=== PATIENT | female | born 1960 | race Asian ===

== ENCOUNTER 2020-09-13 11:42 | Emergency (ER) | payer MEDICAID, OTHER, SELFPAY ==
[2020-09-13 12:00] VITALS: BP 186/78; PULSE 81; RESP 18; TEMP 36.5; O2SAT 99; BMI 29.9
[2020-09-13 12:06] VITALS: BP 167/88
[2020-09-13] MEDS: Tetracaine HCl/PF 0.5% Oph Sol 4 ML DROPS 1 DROP EYE-RIGHT (12:15)
[2020-09-13] MEDS: Fluorescein Sodium STRIP 1 STRIP EYE-RIGHT (12:15)
--- NOTE | 2020-09-13 12:15 | PC.NURSE ---
PT MEDICATED BY MLCecile (MAY).
--- NOTE | 2020-09-13 12:21 | PC.NURSE ---
VISUAL ACUITY DONE PT - L EYE 20/70. PT STATES THAT SHE WAS UNABLE TO SEE OUT OF THE R EYE PRIOR TO EYE DISC TODAY. MLP (May.
--- NOTE | 2020-09-13 12:58 | ED_ITS ---
HPI - Eye Problem General Chief complaint: Eye Problems Stated complaint: eye pain Time Seen by Provider: 09/13/20 11:59 Source: patient Mode of arrival: ambulatory Limitations: no limitations History of Present Illness HPI Narrative: Patient presents to ED for right eye pain, redness, itchiness, and green discharge since yesterday. Patient denies any recent trauma to the eye. patient states loss of right eye vision is chronic for the past 7 months due to retinal detachment that was not repaired at [facility] because it was too late as per patient. MD chief complaint: eye pain and eye redness Related Data Previous Rx's Medication Instructions Recorded neomycin-polymyxin B-dexameth 0.5 inch OPHTHALMIC (EYE) QID 5 09/13/20 [Maxitrol] Days #3.5 g Allergies Allergy/AdvReac Type Severity Reaction Status Date / Time No Known Allergies Allergy Unverified 06/28/20 19:48 [No Known Allergies*] Review of Systems Review of Systems: Yes all other systems are reviewed and are negative Constitutional: Constitutional: Reports as per HPI and Reports no additional constitutional complaints Eyes: Eyes: Reports as per HPI and Reports no additional eye complaints Comments: Right eye pain, conjunctival, scleral redness, green discharge, ENT: Reports system reviewed and no additional complaints, except as documented and Reports as per HPI Cardiovascular: Cardiovascular: Reports as per HPI and Reports no additional cardiovascular complaints Respiratory: Respiratory: Reports as per HPI and Reports no additional respiratory complaints Gastrointestinal: Gastrointestinal: Reports as per HPI and Reports no additional gastrointestinal complaints Musculoskeletal: Musculoskeletal: Reports no additional musculoskeletal complaints and Reports as per HPI Neurologic: Reports system reviewed and no additional complaints, except as documented and Reports as per HPI Psychiatric: Psychiatric: Reports no additional psychiatric complaints and Reports as per HPI [facility] Past Medical History Medical History (Updated 09/13/20 @ 13:06 by MEI Ram) High blood pressure Social History Social History Advance Directives: No Advance Directives Information Provided: Yes Physical Exam Vital Signs: Vital Signs: Last Vital Signs Temp 97.7 F 09/13/20 12:00 Pulse 81 09/13/20 12:00 Resp 18 09/13/20 12:00 BP 167/88 H 09/13/20 12:06 Pulse Ox 99 09/13/20 12:00 Body Mass Index 29.9 Const: General: cooperative, healthy appearing, comfortable, no acute distress and well developed HENMT: Head: Yes normal to inspection, Yes No palpable skull fracture present, No atraumatic, No Acrocyanosis present, No Farias's sign, No contusion, No cranial bruits, No hematoma, No laceration, No occipital foramen tenderness, No palpable skull fracture, No raccoon eyes, No scalp tenderness, No Temporal artery tenderness present and No periorbital ecchymosis Eyes: Other: right eye: Chronic vision loss. Positive for conjunctival / scleral erythema. Negative for photophobia. Tonometry pressure is 12. negative corneal abrasion with fluorescein dye under wood's lamp. negative phot ophobia Left eye: visual acuity 20/25. Tonometry pressures 4. Negative photophobia. Negative for any conjunctival erythema or scleral erythema. Neck: Neck: Yes normal visual inspection, Yes full ROM, Yes no lymphadenopathy and Yes no meningeal signs Chest: Chest palpation & inspection: normal inspection of the chest and normal palpation of entire chest wall Resp: Effort & Inspection: normal respiratory effort and able to speak in complete sentences Auscultation: clear to auscultation bilaterally Cardio: Jugular venous distension: no JVD Heart sounds: S1 normal heart sound present and S2 normal heart sound present GI: Inspection: Yes normal to inspection and No abdominal wall ecchymosis Palpation (GI): Soft to palpation, not firm, nontender, no guarding and not rigid : General: No CVA tenderness and Yes no CVA tenderness Back/Spine/Pelvis: Back: no CVA tenderness, No CVA tenderness and No back tenderness Skin: General skin exam: no rashes or lesions noted Neuro: General: gait normal, no meningeal signs and CN's II-XI intact bilaterally Cranial nerves: Yes CN's II-XII intact bilaterally Extrem: General: Yes normal to inspection and Yes full ROM Psych: Appearance: grossly normal, well kempt and not disheveled Course Course Course Narrative: History physical exam does not indicate glaucoma, corneal abrasion, iritis, or scleritis. Reevaluation(s) Reevaluation #1: most likely diagnosis is bacterial conjunctivitis, but due to patient states more pain than usual and history of retinal detachment Dr. Estrella of ophthomalogy was consulted and he states patient can come to his office today for further evaluation. In the meantime he recommends prescribing Maxitrol. history physical exam does not indicate scleritis due to patient not having photophobia. Patient was informed to go to Dr. Estrella office immediatley after discharge. Time: 13:04 MDM - Eye Problem MDM Narrative Medical decision making narrative: Bacterial conjuctivitis Discharge Plan Discharge Clinical Impression: Bacterial conjunctivitis Patient Disposition: Home, Self-Care Instructions: Conjunctivitis (ED) Additional Instructions: after being discharged please immediately go to Dr. Estrella office. Return to the ED immediately for worsening eye pain, headache, dizziness, swelling of eyelid, fever, chills, or any other concerning symptoms. Prescriptions: New neomycin-polymyxin B-dexameth [Maxitrol] 3.5 mg/g-10,000 unit/g-0.1 % ointment 0.5 inch ophthalmic (eye) QID 5 Days Qty: 3.5 RF: 0 Referrals: Seymour Estrella [Physician] - 2 days ( Right eye pain with redness. Diagnosed as bacterial conjunctivitis. needs further evaluation due to history of right eye retinal detachment. Chronic right eye vision loss. Please go to the clinic after discharge as soon as possible today.) Interventions: ED Discharge Assessment Last Done: 09/13/20 13:26 Discharge Date/Time: 09/13/20 13:27 Print Language: Serbian
== END 2020-09-13 13:27 | disposition home or self-care (01) ==
PROVIDERS: Emergency Provider Emergency Medicine
DX: H10.89 Other conjunctivitis (principal); I10 Essential (primary) hypertension; H54.61 Unqualified visual loss, right eye, normal vision left eye
CPT/HCPCS: 99283

== ENCOUNTER 2021-03-08 15:08 | Outpatient (REF) | payer MEDICAID, OTHER, SELFPAY | END 2021-03-08 15:09 | disposition home or self-care (01) | LOC: HO.RESP 15:08 | PROVIDERS: PCP Internal Medicine; Visit Provider Internal Medicine | DX: Z13.89 Encounter for screening for other disorder (principal) ==

== ENCOUNTER 2023-02-10 14:41 | Outpatient (REF) | payer MEDICAID, OTHER, SELFPAY ==
--- NOTE | ~2023-02-10 | MM_ITS ---
EXAMINATION: MM SCREENING DIGITAL BREAST TOMOSYNTHESIS, BILATERAL CLINICAL INFORMATION: Screening. Asymptomatic. Age 62. No prior breast imaging. No known family history breast cancer. The lifetime risk of breast cancer based on the Tyrer-Cuzick Model is 4%. COMPARISON: None (current study represents initial baseline exam). TECHNIQUE: Digital breast tomosynthesis is performed in both the craniocaudal and mediolateral oblique views along with computer-aided detection (CAD). Synthesized 2D images are generated from the tomosynthesis. FINDINGS: There are scattered areas of fibroglandular density (ACR BI-RADS breast composition Category b). There are no significant masses, abnormal calcifications, or other abnormalities. The axilla are unremarkable. There are scattered bilateral predominantly vascular calcifications. Skin contours are smooth. MM/MM tomosynthesis screening BI IMPRESSION: No mammographic evidence of malignancy. ASSESSMENT: BI-RADS 2: Benign RECOMMENDATION: Routine annual mammography screening. This patient's information was entered into a reminder system with a target due date for their next mammogram.
== END 2023-02-10 14:42 | disposition home or self-care (01) ==
LOC: HO.MAMMO 14:41
PROVIDERS: PCP Internal Medicine; Visit Provider Internal Medicine
DX: Z12.31 Encounter for screening mammogram for malignant neoplasm of breast (principal)
CPT/HCPCS: 77063; 77067

== ENCOUNTER → 2023-02-17 14:57 | Outpatient (REF) | payer MEDICAID, OTHER, SELFPAY ==
--- NOTE | 2023-02-17 15:07 | CA_ITS ---
Transthoracic Echocardiogram Patient (Last, First, Middle): Romelia Justin D Gender: Female Date of : 1960 Age: 62 Procedure Date: 02/17/2023 Procedure Type: Transthoracic Echocardiogram Location: OP Height: 160.02 cm Weight: 71.67 kg BSA: 1.75 m2 Heart Rate: bpm BP: 130 / 86 mmHg Salesperson Burial Plots: LUIS CARLOS Referring MD: Zurdo Gutierrez MD Symptoms: SOB R06.02 Study Quality: Adequate ECG Rhythm: Sinus Conclusions: - The left ventricular systolic function is normal. The calculated ejection fraction is 65% by biplane method. - No obvious valvular pathology seen on this study. Findings Left Ventricle Normal left ventricular cavity size. The left ventricular systolic function is normal. The calculated ejection fraction is 65% by biplane method. There is no evidence of regional wall motion abnormalities. Diastolic function is normal for age. There is mild septal asymmetric hypertrophy. LV peak GLS 22.3%. Right Ventricle Normal right ventricular cavity size and systolic function. Atria Both atria are normal in size. Aortic Valve There is a normal trileaflet aortic valve. There is no aortic valve stenosis. There is no aortic valve regurgitation. Mitral Valve The mitral valve appears normal. There is trace mitral valve regurgitation. There is no mitral valve stenosis. Pulmonic Valve The pulmonic valve is likely normal. Tricuspid Valve Normal tricuspid valve structure. There is trace tricuspid valve regurgitation. There is no evidence of pulmonary hypertension. Great Vessels The asc aorta is normal in size. Venous The inferior vena cava is normal in size and collapses greater than 50% with inspiration. Pericardium/Pleural There is no evidence of pericardial effusion. Prior Study Comparison No prior study available for comparison. Recommendations, Care & Conclusions No obvious valvular pathology seen on this study. Measurements 2D Linear Measurements IVSd: 1.03 0.6-0.9/0.6-1.0 cm LVIDd: 4.32 3.9-5.3/4.2-5.9 cm LVIDd Index: 2.47 2.4-3.2/2.2-3.1 cm/m2 LVIDs: 2.61 2.0-3.6 cm LVPWd: 0.96 0.7-1.1 cm LA Diam: 3.80 2.7-3.8/3.0-4.0 cm LAIDs Index: 2.17 1.5-2.3 cm/m2 LV Mass: 177.94 67-162/88-224 g LV Mass Index: 101.68 43-95/49-115 g/m2 LVOT Diam: 2.00 3.0+(-)1.3 cm 2D Systolic Function EF 4C: 61.80 >55% EF 2C: 65.50 >55% EF BiP: 64.60 >55% Mitral Valve MV Pk E: 0.80 MV PK A: 0.71 MV Decel Time: 215.00 E/A: 1.10 E'Lateral: 11.30 E'Medial: 10.10 E/E' Med: 7.90 E/E' Lat: 7.10 PHT: 63.00 MVA PHT: 3.49 Decel Anson: 3.73 Aortic Valve AoV Pk Hardik: 1.63 AoV Mn Hardik: 1.14 AoV VTI: 0.38 AoV Pk Grad: 11.00 Aov Mn Grad: 6.00 AYSE Cont.VTI: 1.88 LVOT LVOT Pk Hardik: 0.89 LVOT Mn Hardik: 0.61 LVOT VTI: 0.23 LVOT Pk Grad: 3.00 LVOT Mn Grad: 2.00 LVOT Diam: 2.00 LVOT Area: 3.14 Diastolic Function MV Pk E: 0.80 MV Pk A: 0.71 E/A: 1.10 E'Medial: 10.10 E/E' Med: 7.90 E' Laterial: 11.30 E/E' Lat: 7.10 Right Ventricle TAPSE (mm): 18.70 TVS' Hardik: 10.40 Tricuspid Valve TR Pk Hardik: 1.98 TR Pk Grad: 16.00 RA Press: 3.00 RVSP: 19.00 Great Vessels Aorta Sinus of Valsalva: 3.43 2.0-3.[address] [place]: 2.73 1.7-3.4 cm Ao Asc: 3.20 2.1-3.4 cm Updated in Other Vendor System with Status of Final Gregorio Pérez MD electronically signed on 02/19/2023 10:43:59 AM with status of Final
== END ==
LOC: HO.CARD 14:57
PROVIDERS: PCP Internal Medicine; Visit Provider Internal Medicine
DX: R06.02 Shortness of breath (principal)
CPT/HCPCS: 93306; 93356

== ENCOUNTER 2023-06-22 12:58 | Outpatient (REF) | payer MEDICAID, OTHER, SELFPAY ==
[2023-06-24 21:49] LABS: TS Negative Control Passed; TS Panel A 0; TS Panel B 0; TS Positive Control Passed; TSpotTB Negative (Negative)
== END 2023-06-22 12:59 | disposition home or self-care (01) ==
LOC: HO.CHCLDS 12:58
PROVIDERS: Visit Provider Student in an Organized Health Care Education/Training Program
DX: A15.0 Tuberculosis of lung (principal)
CPT/HCPCS: 36415; 86481

== ENCOUNTER 2024-05-18 09:11 | Outpatient (REF) | payer MEDICAID, OTHER, SELFPAY ==
[2024-05-18 14:15] LABS: MANUAL DIFF FLAG NO
[2024-05-18 14:19] LABS: Basophils Absolute Auto 0.1 X10*3/uL (0.0-0.2); Basophils Percent Auto 1.3 % (0-2); Eosinophils Absolute Auto 0.4 X10*3/uL (0.0-0.4); Eosinophils Percent Auto 7.7 % (0-4); Hematocrit 39.4 % (37.0-47.0); Hemoglobin 12.9 g/dl (12.0-16.0); Imm Gran Abs Auto 0.01 X10*3/uL (0.00-0.03); Imm Gran Pct Auto 0.2 % (0.0-0.4); Lymphocytes Percent Auto 43.4 % (20-40); Mean Corpuscular HGB Conc 32.7 g/dl (31.0-35.0); Mean Corpuscular Hemoglobin 28.5 pg (27.0-33.0); Mean Corpuscular Volume 87.2 fL (80.0-98.0); Mean Platelet Volume 12.6 fL (9.4-12.3); Monocytes Absolute Auto 0.3 X10*3/uL (0.1-1.2); Monocytes Percent Auto 7.1 % (2-11); Neutrophils Absolute Auto 1.9 x10*3/uL (2.0-8.3); Neutrophils Percent Auto 40.3 % (45-73); Platelet Count 212 X10*3/uL (160-400); Red Blood Count 4.52 X10*6/uL (4.20-5.50); Red Cell Distribution Width 13.5 % (11.0-16.0); White Blood Count 4.7 X10*3/uL (4.8-10.8)
[2024-05-18 14:45] LABS: Alanine Aminotransferase 15 U/L (0-31); Albumin Level 3.9 g/dL (3.5-5.0); Alkaline Phosphatase 82 U/L (39-117); Anion Gap 12 (12-20); Aspartate Amino Transferase 18 U/L (5-31); Bilirubin Total 0.3 mg/dL (0.0-1.0); Blood Urea Nitrogen 11 mg/dL (9-16); Calcium 9.4 mg/dL (8.4-10.2); Carbon Dioxide 24 mmol/L (22-29); Chloride 108 mmol/L (96-108); Cholesterol 208 mg/dL (<200); Estimated Glomerular Filt Rate > 60; Glucose Random 93 mg/dL (60-115); HDL Cholesterol 50 mg/dL (>40); LDL Cholesterol Calculated 142 mg/dL (<100); Potassium 4.4 mmol/L (3.3-5.1); Sodium 140 mmol/L (135-145); Total Protein 7.5 g/dL (6.5-8.0); Triglycerides 82 mg/dL (<150)
[2024-05-18 14:53] LABS: TSH reflex Free T4 2.08 uIU/mL (0.32-4.0)
== END 2024-05-18 09:12 | disposition home or self-care (01) ==
LOC: HO.CHCLDS 09:11
PROVIDERS: Visit Provider Internal Medicine
DX: J31.0 Chronic rhinitis (principal); R14.0 Abdominal distension (gaseous)
CPT/HCPCS: 36415; 80053; 80061; 84443; 85025

== ENCOUNTER 2024-11-07 15:41 | Emergency (ER) | payer OTHER, SELFPAY ==
--- NOTE | ~2024-11-07 | XR_ITS ---
EXAMINATION: XR CHEST CLINICAL INFORMATION: cough, sob COMPARISON: None available. TECHNIQUE: 2 views of the chest were obtained. FINDINGS: The lungs are well-expanded and clear acute process. The heart size and pulmonary vascularity is normal. No gross bony abnormality seen. XR/XR chest 2V IMPRESSION: Unremarkable chest exam Electronically signed by: Jorge Chowdary MD 11/07/2024 04:57 PM EST
[2024-11-07 15:53] VITALS: BP 138/63; PULSE 85; RESP 20; TEMP 36.8; O2SAT 98; BMI 31.5
--- NOTE | 2024-11-07 15:53 | ED_ITS ---
HPI - General Adult General Chief complaint: Upper Respiratory Symptoms Stated complaint: cough Time Seen by Provider: 11/07/24 21:38 Source: patient and family Limitations: language barrier History of Present Illness ED Provider: Elle Beverly PA-C HPI narrative: 64-year-old female with a history of GERD presents with ongoing dry cough for 3 months. Patient has been having an ongoing dry repetitive cough, has seen primary care several times, her symptoms returned. Associated sore throat and excessive eructation. Patient was also seen by primary care for the excessive eructation, they placed her on Gas-X and omeprazole, she has been adherent with these medications. Her symptoms also seemed to be worse at night. Denies history of asthma/COPD, any prior tobacco use, fever. Related Data Previous Rx's ?Medication ?Instructions ?Recorded neomycin 3.5 mg/g-polymyxin B 0.5 inch ophthalmic (eye) QID 5 09/13/20 10,000 unit/g-dexameth 0.1 % eye days #3.5 grams oint (Maxitrol) sucralfate 100 mg/mL oral 10 ml PO QID PRN GERD #300 mL 11/07/24 suspension (Carafate) Allergies Allergy/AdvReac Type Severity Reaction Status Date / Time No Known Allergies Allergy Verified 11/07/24 15:54 [No Known Allergies*] Review of Systems Review of Systems: Yes all other systems are reviewed and are negative Constitutional: Constitutional: Denies fatigue and Denies fever(s) ENT: Denies nasal congestion and Reports sore throat Cardiovascular: Cardiovascular: Denies chest pain and Denies dyspnea Respiratory: Respiratory: Denies chest congestion, Reports cough, Denies dyspnea and Denies wheezing Gastrointestinal: Gastrointestinal: Denies abdominal pain, Reports belching, Denies nausea and Denies vomiting Endocrine: Endocrine: Denies fatigue Allergic/Immunologic: Allergic/Immunologic: Denies wheezing PMFSH Past Medical History Attestation statement: The following information was validated with the patient. Medical History (Updated 11/07/24 @ 22:40 by MEI Silav) High blood pressure Social History Social History Advance Directives: No Advance Directives Information Provided: No Do you have a plan to hurt others: No Plan Physical Exam ED Vital Signs: Vital Signs - 24 hr 11/07/24 15:53 Temperature 98.3 F Pulse Rate 85 Respiratory Rate 20 Blood Pressure 138/63 Pulse Oximetry 98 Oxygen Delivery Method Room Air BMI result Body Mass Index 31.5 Const Other: Alert Orientation/consciousness: patient oriented x3 HENMT Other: Opiate mildly erythematous no exudate Resp Other: Nonlabored respirations, active dry spasm like cough that precedes excessive eructation. Lungs are clear to auscultation no wheezing no stridor Cardio Other: Normal peripheral perfusion GI Other: Soft, nondistended nontender Skin Other: Warm dry no rash Neuro General: patient oriented x3, no focal motor deficits and CN's II-XI intact bilaterally Psych Other: Cooperative Course Course Course Narrative: RME performed by Mara Hernandez PA-C. Patient is a 64 year old assigned female at presenting to the emergency department with a cough. Detailed physical exam and review of systems are deferred to the concrete rod buster. Imaging and swabs ordered. Patient placed back in the waiting room pending room availability and results. Medical Decision Making Medical Decision Making [facility] Narrative: 64-year-old female with a history of GERD presents with ongoing dry cough for 3 months. Patient has been having an ongoing dry repetitive cough, has seen primary care several times, her symptoms returned. Associated sore throat and excessive eructation. Patient was also seen by primary care for the excessive eructation, they placed her on Gas-X and omeprazole, she has been adherent with these medications. Her symptoms also seemed to be worse at night. Denies history of asthma/COPD, any prior tobacco use, fever. Problem: GERD History: Per patient's daughter I have considered the following differential diagnoses: Viral syndrome, br onchospasm, airway reactivity, pneumonia, bronchitis, poorly controlled acid reflux Plan: Given the duration of symptoms and the nature of her exam, I feel her poorly controlled reflux as the cause for this ongoing cough and sore throat. We will send with the Carafate, home care instructions, and I spoke at length with the daughter that she requires gastroenterology consult and likely endoscop y. Screening labs and a viral panel Were obtained from triage I have independently reviewed the following tests: Viral panel is negative Chest x-ray:FINDINGS: The lungs are well-expanded and clear acute process. The heart size and pulmonary vascularity is normal. No gross bony abnormality seen. XR/XR chest 2V IMPRESSION: Unremarkable chest exam Electronically signed by: Jorge Chowdary MD 11/07/2024 04:57 PM EST Lab Data Labs: Lab Results 11/07/24 Range/Units 16:56 Influenza Type A (PCR) NEGATIVE (Negative) Influenza Type B (PCR) NEGATIVE (Negative) RSV RNA Qual (PCR) NEGATIVE (Negative) SARS-CoV-2 RNA (RT-PCR) NEGATIVE (Negative) Discharge Plan Discharge Clinical Impression: Cough, GERD (gastroesophageal reflux disease), Pharyngitis Patient Disposition: Home, Self-Care Instructions: Pharyngitis (ED), Diet for Stomach Ulcers and Gastritis (ED), Gastroesophageal Reflux Disease (ED), Chronic Cough (ED) Additional Instructions: You were screened for influenza a and B, COVID and RSV, the viral panel was negative. The chest x-ray is clear. I do believe your symptoms are secondary to poorly controlled acid reflux/GERD. See home care instructions. There are several dietary triggers, some of these food include anything carbonated, mint, caffeine, chocolate, alcohol, greasy food, spicy food, acidic food. You should also not eat 3 hours prior to bed, as this typically worsens reflux symptoms. Use the Carafate as directed 30 minutes prior to meals. Also, eating small meals frequently throughout the day, as opposed to eating 3 large meals, can also help prevent acid reflux symptoms. You need to call your primary care provider tomorrow to schedule a follow up appointment, to discuss the need to see a emery wheel molder for endoscopy. Prescriptions: New sucralfate [Carafate] 100 mg/mL suspension 10 ml PO QID PRN (Reason: GERD) Qty: 300 0RF Rx Instructions: swish in mouth and swallow; use after food/drink No Action neomycin-polymyxin B-dexameth [Maxitrol] 3.5 mg/g-10,000 unit/g-0.1 % ointment 0.5 inch ophthalmic (eye) QID 5 Days Qty: 3.5 0RF Rx Instructions: space evenly during waking hours Print Language: Nidhi
[2024-11-07 18:06] LABS: Influenza A PCR NEGATIVE (Negative); Influenza B PCR NEGATIVE (Negative); Resp Syncy Virus RNA Qual PCR NEGATIVE (Negative); SARS COV2 PCR INHOUSE NEGATIVE (Negative)
[2024-11-07 22:49] VITALS: BP 107/66; PULSE 80; RESP 16; TEMP 36.7; O2SAT 97
[2024-11-07 22:55] VITALS: BP 107/66; PULSE 80; RESP 16; TEMP 36.7; O2SAT 97
[2024-11-07] MEDS: Sucralfate Oral Suspension 1 GM/10 ML ORAL.SUSP PO (22:59)
== END 2024-11-07 23:01 | disposition home or self-care (01) ==
PROVIDERS: Physician Assistant Medical; Emergency Provider Emergency Medicine; PCP Internal Medicine
DX: R05.9 Cough, unspecified (principal); J02.9 Acute pharyngitis, unspecified; K21.9 Gastro-esophageal reflux disease without esophagitis; Z03.818 Encounter for observation for suspected exposure to other biological agents ruled out
CPT/HCPCS: 0241U; 71046; 99282; 99283

== ENCOUNTER → 2024-11-07 15:53 | Outpatient (BNV) | payer OTHER, SELFPAY | PROVIDERS: PCP Internal Medicine; Visit Provider Radiology Diagnostic Radiology | DX: R06.02 Shortness of breath (principal); R05.9 Cough, unspecified | CPT/HCPCS: 71046 ==

== ENCOUNTER 2025-01-03 13:03 | Outpatient (AMB) | payer MEDICAID, SELFPAY ==
[2025-01-03 13:13] VITALS: BP 126/60; PULSE 66; O2SAT 100; BMI 27.1
--- NOTE | 2025-01-03 13:13 | MHC.OFFVIS ---
Vital Signs 01/03/25 13:13 Height 5 ft 6 in Weight 168 lb BMI 27.1 BP 126/60 Blood Pressure Location Rt brachial Position Sitting Pulse 66 Pulse Source Pulse Oximeter Pulse Oximetry (%) 100 Oxygen Delivery Method Room Air Intake Visit Reasons: chronic cough Informatics Nurse Required: Yes Informatics Nurse Name: Daughter of patient. Principal Java Software Engineer: Principal Java Software Engineer offered & declined Accompanied by: Daughter Allergies seasonal allergies Allergy (Uncoded 01/03/25 13:22) coughing HPI HPI chronic cough: Details: Romelia is pleasant 64 year old female, never smoker, with underlying GERD and HTN. She was referred by PCP for pulmonary evaluation for chronic dry cough. She reports cough has been present for the last few years and more persistent over the last few months. She also endorses dyspnea with cough as well as exertion and intermittent wheezing. She denies prior h/o asthma. She denies second hand smoke exposure however did have exposure to open fire cooking as a child. She was seen by PCP in October who prescribed a zpak and prednisone with resolution of productive cough however dry cough lingers. She also had her omeprazole increased with slight improvement and has been reportedly following a reflux diet. She continue to report heartburn, reflux and sour taste in mouth. Prior CXR 10/2024 unremarkable. She denies prior PFT. She endorses seasonal allergies however no recent allergy testing. At this time denies allergic symptoms. [facility] Medical History (Updated 01/03/25 @ 14:01 by Natasha Arshad NP) High blood pressure Social History Patient Tobacco Use Status: Never used Tobacco Physical Exam Vital Signs: Last Vital Signs Pulse 66 01/03/25 13:13 BP 126/60 01/03/25 13:13 Pulse Ox 100 01/03/25 13:13 Oxygen Delivery Method Room Air 01/03/25 13:13 BMI result Body Mass Index 27.1 Assessment & Plan Assessment & Plan (1) Chronic cough: Code(s): R05.3 - Chronic cough Category: Medical (2) Environmental allergies: Code(s): Z91.09 - Other allergy status, other than to drugs and biological substances Category: Medical Plan Romelia presents for pulmonary evaluation for chronic dry cough, unclear etiology however may be reactive airway disease with allergic triggers vs reflux contribution. Will send for PFT and RAST to evaluate. Will empirically trial albuterol MDI. Discussed ways to minimize reflux including wedge pillow. Prior CXR unremarkable, if cough persists will consider chest CT. All questions were answered and patient is in agreement of plan. Will follow up in 6-8 weeks to review results or sooner if needed. Orders: Orders Immunoglobulin E 01/03/25 R05.9 - Cough, unspecified PFT pulmonary function test Today R05.3 - Chronic cough Resp Allergy Profile Region I 01/03/25 Z91.09 - Other allergy status, other than to drugs and biological substances Complete Blood Count Auto Diff 01/03/25 Z91.09 - Other allergy status, other than to drugs and biological substances Medications: New albuterol sulfate 90 mcg/actuation 2 puffs inhalation Q4-6H PRN 1 ea 0RF shortness of breath or wheezing Discontinued neomycin-polymyxin B-dexameth 3.5 mg/g-10,000 unit/g-0.1 % space evenly during waking hours Discontinued Reason: Patient Completed Course 0.5 inches ophthalmic (eye) QID 5 days 3.5 grams 0RF Coding Level of Care Code New Pt Level 4 (63081) Diagnoses Chronic cough R05.3 Environmental allergies Z91.09
== END 2025-01-03 13:53 | disposition home or self-care (01) ==
LOC: HO.HPSW 13:04
PROVIDERS: PCP Internal Medicine; Visit Provider Nurse Practitioner Family
DX: R05.3 Chronic cough (principal); Z91.09 Other allergy status, other than to drugs and biological substances
CPT/HCPCS: 99204

== ENCOUNTER → 2025-01-03 13:03 | Outpatient (BNVA) | payer MEDICAID, SELFPAY | PROVIDERS: PCP Internal Medicine; Visit Provider Nurse Practitioner Family | DX: R05.3 Chronic cough (principal); Z91.09 Other allergy status, other than to drugs and biological substances | CPT/HCPCS: 99202 ==

== ENCOUNTER 2025-01-03 13:56 | Outpatient (REF) | payer MEDICAID, SELFPAY ==
[2025-01-03 18:29] LABS: Imm Gran Abs Auto 0.01 X10*3/uL (0.00-0.03); Imm Gran Pct Auto 0.2 % (0.0-0.4); MANUAL DIFF FLAG SCAN; SCAN SMEAR FLAG 1
[2025-01-03 18:32] LABS: Basophils Absolute Auto 0.1 X10*3/uL (0.0-0.2); Basophils Percent Auto 1.4 % (0-2); Eosinophils Absolute Auto 0.7 X10*3/uL (0.0-0.4); Eosinophils Percent Auto 12.3 % (0-4); Hematocrit 35.1 % (37.0-47.0); Hemoglobin 11.9 g/dl (12.0-16.0); Lymphocytes Percent Auto 35.3 % (20-40); Mean Corpuscular HGB Conc 33.9 g/dl (31.0-35.0); Mean Corpuscular Hemoglobin 29.2 pg (27.0-33.0); Mean Corpuscular Volume 86.2 fL (80.0-98.0); Mean Platelet Volume 13.8 fL (9.4-12.3); Monocytes Absolute Auto 0.4 X10*3/uL (0.1-1.2); Monocytes Percent Auto 7.2 % (2-11); Neutrophils Absolute Auto 2.4 x10*3/uL (2.0-8.3); Neutrophils Percent Auto 43.6 % (45-73); PLT CLUMP 1; Red Blood Count 4.07 X10*6/uL (4.20-5.50); Red Cell Distribution Width 13.7 % (11.0-16.0)
[2025-01-03 18:52] LABS: PLT ABN DIST 1; White Blood Count 5.5 X10*3/uL (4.8-10.8)
[2025-01-03 20:29] LABS: Platelet Count 175 X10*3/uL (160-400); SLIDE REVIEW VERIFIED
[2025-01-14 04:53] LABS: Immunoglobulin E 612 kU/L (<OR=114)
[2025-01-16 11:13] LABS: Class Alternaria alternata 0; Class Aspergillus fumigatus 0/1; Class Bermuda Grass 1; Class Birch 0/1; Class Cat Dander 0/1; Class Cladosporium herbarum 0; Class Cockroach 3; Class Common Ragweed 2; Class Cottonwood 1; Class Derm. pterony 4; Class Dermatophagoides farinae 4; Class Dog Dander 1; Class Elm 0/1; Class Maple Box Elder 0/1; Class Mountain Cedar 0/1; Class Mouse Urine Protein 0; Class Mugwort 1; Class Oak 2; Class Penicillium crysogenum 0; Class Rough Pigweed 0/1; Class Sheep Sorrel 0/1; Class Sycamore 0/1; Class Timothy Grass 2; Class Walnut Tree 0/1; Class White Ash 0/1; Class White Mulberry 0; E001 - IgE Cat Dander 0.12 kU/L; E005 - IgE Dog Dander 0.52 kU/L; E072-IgE Mouse Urine <0.10 kU/L; G002 IgE Bermuda Grass 0.39 kU/L; G006 - IgE Timothy Grass 1.41 kU/L; Immunoglobulin E 558 kU/L (<OR=114); M001 IgE Penicillium chrysogen <0.10 kU/L; M002 - IgE Cladosporium herbar <0.10 kU/L; M003 - IgE Aspergillus fumigat 0.12 kU/L; M006 - IgE Alternaria alternat <0.10 kU/L; T001 IgE Maple/Box Elder 0.13 kU/L; T008 IgE Elm, American 0.25 kU/L; T010 - IgE Walnut 0.31 kU/L; T011 - IgE Maple Leaf Sycamore 0.13 kU/L; T014 - IgE Cottonwood 0.41 kU/L; T015 - IgE Ash, White 0.14 kU/L; T070 - IgE White Mulberry <0.10 kU/L; W001 - IgE Ragweed, Short 0.96 kU/L; W006 - IgE Mugwort 0.55 kU/L; W014 IgE Pigweed, Common 0.29 kU/L; W018 IgE Sheep Sorrel 0.22 kU/L
== END 2025-01-03 13:57 | disposition home or self-care (01) ==
LOC: HO.WFDLDS 13:56
PROVIDERS: Visit Provider Nurse Practitioner Family
DX: R05.9 Cough, unspecified (principal); Z91.09 Other allergy status, other than to drugs and biological substances
CPT/HCPCS: 36415; 82785; 85025; 86003

== ENCOUNTER 2025-02-22 15:51 | Outpatient (REF) | payer OTHER, SELFPAY ==
--- OUTSIDE RECORDS SUMMARY | 2025-02-22 15:54 | XMS_ITS | Encounter Summary ---
Author Organization [employer] Address [address] [facility] [address] [place] [address] Care Team Providers Care Manager Play Name Role Phone Zurdo Chavarria MD Primary Care Prov ider Reason for Visit * Reason Onset Date Comments Nurse Triage 09/28/2024 Encounter Details Date Type Department Care Team ([facility] st Contact Info) Description 09/28/2024 Telephone [facility]EDS [address] [place], [place] [phone] Zurdo Chavarria MD [address] [place] [address] Nurse Triage Social History Tobacco Use Types Packs/Day Years Used Date Smoking Tobacco: Never Passive Smoke Exposure: Never Smokeless Tobacco: Never Depression Answer Date Recorded Patient Health Questionnaire-9 Score 2 02/03/2024 Patient Health Questionnaire-9 Score 2 02/03/2024 Last PHQ-9: Questionnaire Data Not on file 0 02/03/2024 Housing Stability Answer Date Recorded What is your housing situation today? I have logan tran 08/22/[address] you li ve. Do you have problems with any of the following? None of the above 08/22/2023 Food Insecurity Answer Date Recorded Within the past 12 months, y ou worried that your food would run out before you got money to buy more: Never True 08/22/2023 Within the past 12 months,th e food you bought just didn't last and you didn't have enough money to get more: Never True 08/2023 Transportation Answer Date Recorded In the past 12 months, has l ack of transportation kept you from medical appts, meetings, work or from getting things needed for daily living? No 08/22/2023 Utilities Answer Date Recorded In the past 12 months, has t he electric, gas, oil or water company threatened to shut off services in your home? No 08/22/2023 Depression Answer Date Recorded Patient Health Questionnaire-2 Score 0 02/03/2024 Comments Unknown Sex and Gender Information Value Date Recorded Sex Assigned at Female 08/11/2022 10:36 AM EDT Legal Sex Female 10:36 AM EDT Gender Identity Choose not to disclose 10:36 AM EDT Sexual Orientation Choose not to disclose 2021 10:36 AM EDT documented as of this encounter Miscellaneous Notes * Telephone Encounter - Morenita Haas RN - 09/28/2024 9:47 AM EST Triage call Pt daughter is speaking for Pt and is HIPPA. Pt has continued to have a persistent dry cough for over a month now. Pt has been seen in Urgent Care and no change in this cough. Daughter reports the cough is mainly a problem at night which makes sleep difficult. Pt does have a humidifier at bedside, is using 1-2 tsp of honey with a little lemon. Pt is encouraged to drink adequate liquids especially warm drinks. Possibly try decaf tea with honey and lemon at bedtime and daughter agreesto try this. Daughter is requesting apt only with PCP Teto. ASK apt with Dr. Irene scheduled 10/26/23 @ 315pm. Pt is offered apt on 10/06 but declines requesting PCP only. Home care is reviewed. Daughter agrees with disposition. Insurance is verified as active prior to booking. Protocol Used: Cough (Adult) Protocol-Based Disposition: See in Office or Video Visit Today or Tomorrow Override (Final) Disposition: See in Office or Video Visit within 2 Weeks Override Reason: Requests to speak with provider Video visit not offered Positive Triage Question: * Patient wants to be seen * All higher-acuity triage questions were negative Care Advice Discussed: * Reassurance and Education - Cough * Cough Medicines * Coughing Spells * Prevent Dehydration * Humidifier * Reasons To Call Back - Difficulty breathing - Cough lasts more than 3 weeks - Fever lasts more than 3 days - You become worse * Telephone Encounter - Bety Sanderson - 09/28/2024 9:21 AM EST Symptom: Cough Outcome: Schedule an appointment to be seen within 24 hours Reason: Caller denied all higher acuity questions The caller accepted this outcome. documented in this encounter Plan of Treatment Upcoming Encounters Date Type Department Care Team (Late st Contact Info) Description 02/27/2025 4:00 PM EDT Office Visit [facility] MED & PEDS [address] [place] [address] Zurdo Chavarria MD [address] [place] [address] documented as of this encounter Visit Diagnoses Not on filedocumented in this encounter Additional Health Concerns Assessment Noted Time PHQ-9 Depression Total Score: 2 02/03/20 24 1:59 PM EDT documented as of this encounter Care Teams Manager Play Relationship Specialty Start Date End Date Zurdo Chavarria MD [address] [place] [address] PCP - General Internal Medicine 10/24/19 documented as of this encounter
--- OUTSIDE RECORDS SUMMARY | 2025-02-22 15:54 | XMS_ITS | Encounter Summary ---
Author Organization [employer] Address [address] [facility] [address] [place] [address] Care Team Providers Care Molybdenum Steamer Operator Name Role Phone Zurdo Chavarria MD Primary Care Prov ider Reason for Visit * Reason Onset Date Comments Nurse Triage 06/14/2024 Encounter Details Date Type Department Care Team (Late st Contact Info) Description 06/14/2024 Telephone [facility] [address] [place] [address] Zurdo Chavarria MD [address] [place] [phone] Nurse Triage Social History Tobacco Use Types [...] Telephone Encounter - Morenita Haas RN - 06/14/2024 2:20 PM EDT Triage call Pt daughter, EMMA Leon reports Pt continues to cough. Pt was seen in [facility] 06/08/24, report is on the chart. Pt was found to be + for Covid and paxlovid was prescribed. Pt is reported to be drinking adequate liquids, using cough drops and doing salt water gargles as well as albuterol power plant mechanic advised. Pt continues to have a cough and daughter wants antibiotics . Pt is not having a fever. Explained to daughter that Covid cough can last for some time but, daughter requests to speak to provider. TSK visit with PCP 06/15/24 1015am. Insurance is verified as active prior to booking. Homecare already implemented. Daughter agrees with disposition. Protocol Used: Cough (Adult) Protocol-Based Disposition: See in Office or Video Visit Today or Tomorrow Video visit offered and caller accepted Positive Triage Question: * Continuous (nonstop) coughing interferes with work or school and no improvement using cough treatment per Care Advice * All higher-acuity triage questions were negative Care Advice Discussed: * Reassurance and Education - Cough * Cough Medicines * Coughing Spells * Prevent Dehydration * Reasons To Call Back - Difficulty breathing - Cough lasts more than 3 weeks - Fever lasts more than 3 days - You become worse * Telephone Encounter - Ml Quiros - 06/14/2024 1:57 PM EDT Symptom: Cough, Sleeping Difficulty Outcome: Schedule an urgent appointment (within 1 hour) or talk to a nurse or provider soon Reason: Wheezing (high-pitched whistling sound) The caller accepted this outcome documented in this encounter Plan of Treatment Upcoming Encounters Date Type Department Care Team ([facility] st Contact Info) Description 02/27/2025 4:00 PM EDT Office Visit [facility] MED & PEDS [address] [place] [address] Zurdo Chavarria MD [address] [place] [address] documented as of this encounter Visit Diagnoses Not on filedocumented in this encounter Additional Health Concerns Assessment Noted Time PHQ-9 Depression Total Score: 2 02/03/20 24 1:59 PM EDT documented as of this encounter Care Teams Molybdenum Steamer Operator Relationship Specialty Start Date End Date Zurdo Chavarria MD [address] [place] [address] PCP - General Internal Medicine 10/24/19 documented as of this encounter
--- OUTSIDE RECORDS SUMMARY | 2025-02-22 15:54 | XMS_ITS | Encounter Summary ---
Author Organization [employer] Address [address] [facility] [address] [place] [address] Care Team Providers Care Cdl Bulk Driver Name Role Phone Zurdo Chavarria MD Primary Care Prov ider Encounter Details Date Type Department Care Team (Late Contact Info) Description 06/22/2023 Orders Only [facility] MED & PEDS [address] [place], [place] [phone] Zurdo Chavarria MD [address] [place], [place] [phone] Social History Tobacco Use Types Packs/Day Years Used Date Smoking Tobacco: Never Smokeless Tobacco: Never Depression Answer Date Recorded Patient Health Questionnaire-9 Score 0 12/31/2022 Depression Answer Date Recorded Patient Health Questionnaire-2 Score 0 12/31/2022 Comments Unknown Sex and Gender Information Value Date Recorded Sex Assigned at Female 08/11/2022 10:36 AM EDT Legal Sex Female 10:36 AM EDT Gender Identity Choose not to disclose 10:36 AM EDT Sexual Orientation Choose not to disclose 2021 10:36 AM EDT documented as of this encounter Plan of Treatment Upcoming Encounters Date Type Department Care Team (Late Contact Info) Description 02/27/2025 4:00 PM EDT Office Visit [facility] MED & PEDS [address] [place], [place] [phone] Zurdo Chavarria MD [address] [place] [address] documented as of this encounter Visit Diagnoses Not on filedocumented in this encounter Additional Health Concerns Assessment Noted Time PHQ-9 Depression Total Score: 0 01/01/20 23 9:31 AM EDT documented as of this encounter Care Teams Cdl Bulk Driver Relationship Specialty Start Date End Date Zurdo Chavarria MD [address] [place] [id number] PCP - General Internal Medicine 10/24/19 documented as of this encounter
--- OUTSIDE RECORDS SUMMARY | 2025-02-22 15:54 | XMS_ITS | Clinical Summary ---
Author Organization [employer] Address [address] [facility] [address] [place] [address] Care Team Providers Care Medical Records Administrator Name Role Phone Zurdo Chavarria MD Primary Care Prov ider Allergies No known active allergies Medications fluticasone (Flonase) 50 MCG/ACT nasal sprayIndication s:Chronic rhinitis Administer 1-2 sprays into each nostril Once per day. Shake gently. Before first use, prime pump. After use, clean tip and replace cap. 16 g 11 4 Active simethicone 250 MG capsuleIndicati ons:Bloating Take 1 capsule (250 mg) by mouth with breakfast, with lunch, and with evening meal. 90 capsule 1 4 Active albuterol 108 (90 Base) MCG/ACT inhaler Inhale 2 puffs every 6 (six) hours if needed for wheezing. 18 g 11 4 05/17/20 25 Active Blood Pressure kit 1 kit Once per day. 1 kit 4 Active gabapentin (Neurontin) 300 MG capsule Take 1 capsule (300 mg) by mouth 2 times daily. 60 capsule 4 06/22/20 25 Active atorvastatin (Lipitor) 20 MG tablet Take 1 tablet (20 mg) by mouth Once per day. 30 tablet 11 5 10/26/19 26 Active fexofenadine (Tasha) 180 MG tabletIndicatio ns:Acute cough Take 1 tablet (180 mg) by mouth if needed each day (Allergies). 90 tablet 5 10/26/19 26 Active losartan (Cozaar) 50 MG tablet Take 1 tablet (50 mg) by mouth Once per day. 90 tablet 3 5 10/26/19 26 Active omeprazole (PriLOSEC) [address] vivianIndicati ons:Bloating Take 1 capsule (20 mg) by mouth before breakfast and before evening meal. Do not crush or chew. 180 capsule 3 5 11/24/19 26 Active Active Problems Problem Noted Date Diagnosed Date Mixed hyperlipidemia 06/22/2024 Assessment & Plan (06/22/2024 8:11 PM EDT): Ascvd>5%, will start atorvastatin 20mg, continue low cholesterol diet Neuropathy 06/22/2024 Assessment & Plan (06/22/2024 8:18 PM EDT): No neck pain, will start on gabapentin, follow up in 1 month Chronic cough 06/03/2024 Assessment & Plan (11/25/2024 1:40 PM EST): Will increase omperazole to BID, lifestyle mofifications reviewed, follow up with pulmonology Assessment & Plan (10/26/2024 5:44 PM EST): Will refer to pneumology, pft previously sent not jennifer Assessment & Plan (06/03/2024 3:16 PM EDT): On ausucltation patient is clear, will send a xray for evaluation Primary hypertension 06/03/2024 Assessment & Plan (11/25/2024 1:39 PM EST): At home has remained controlled, keep low sodium diet, follow up in 3 months Assessment & Plan (10/26/2024 5:43 PM EST): Elevated, refers at home remains below 140/90, keep bp log for next visit, Assessment & Plan (06/22/2024 8:10 PM EDT): Uncontrolled, will increase losartan to 50mg, keep low sodium diet, follow up in 1 month Assessment & Plan (06/03/2024 3:18 PM EDT): Uncontrolled, will start on losartan, encouraged low sodium diet and exercise as tolerated, keep bp log, follow up in 1 month Shortness of breath 02/05/2023 Assessment & Plan (02/05/2023 10:17 AM EDT): Patient refers having shortness of breath after climbing stair and walking long distance, will order PFT and will also send for a echocardiogram Primary insomnia 12/31/2022 Assessment & Plan (05/14/2023 5:16 PM EDT): Will start on trazodone , reviewed lifestyle modification, call back if not improving Assessment & Plan (02/05/2023 10:18 AM EDT): Improved, continue melatonin, continue lifestyle modification Assessment & Plan (12/31/2022 2:16 PM EDT): Will start on melatonin, lifestyle modifications were reccomended Gastroesophageal reflux disease without esophagi tis 12/31/2022 Assessment & Plan (12/31/2022 2:16 PM EDT): Patient will be started on omeprazole, will also renew simethicone for burping, lifestyle modifications recomended Chronic rhinitis 12/31/2022 Assessment & Plan (06/03/2024 3:16 PM EDT): On tasha and flonase, no changes will be made Assessment & Plan (12/31/2022 2:17 PM EDT): Will renew tasha, reviewed common trigger and ways to avoid them Encounter for screening mamm ogram for malignant neoplasm of breast 12/31/2022 Screening for colon cancer 12/31/2022 Assessment & Plan (12/31/2022 2:20 PM EDT): Will order cologard test, risk vs benefits were discussed Encounters Date Type Department Care Team Description 11/25/2024 Telephone [facility] [address] [place] [address] Zurdo Chavarria MD from Last 3 Months Immunizations Immunization Administration Dates Next Due Influenza Quadrivalent Adjuvanted 07/09/2023 Tdap 12/31/2022 Social History Tobacco Use Types Packs/Day Years Used Date Smoking Tobacco: Never Passive Smoke Exposure: Never Smokeless Tobacco: Never Depression Answer Date Recorded Patient Health Questionnaire-9 Score 5 11/24/2024 Patient Health Questionnaire-9 Score 5 11/24/2024 Last PHQ-9: Questionnaire Data Not on file 0 11/24/2024 Housing Stability Answer Date Recorded What is your housing situation today? I have logan tran 11/24/[address] you li ve. Do you have problems with any of the following? None of the above 11/24/2024 Food Insecurity Answer Date Recorded Within the past 12 months, y ou worried that your food would run out before you got money to buy more: Never True 11/24/2024 Within the past 12 months,th e food you bought just didn't last and you didn't have enough money to get more: Never True Transportation Answer Date Recorded In the past 12 months, has l ack of transportation kept you from medical appts, meetings, work or from getting things needed for daily living? No 11/24/2024 Utilities Answer Date Recorded In the past 12 months, has t he electric, gas, oil or water company threatened to shut off services in your home? No 11/24/2024 Depression Answer Date Recorded Patient Health Questionnaire-2 Score 0 11/24/2024 Internet Access Answer Date Recorded Internet Access Q1 Yes 11/24/2024 Internet Access Q2 Not on file 11/24/2024 Comments Unknown Sex and Gender Information Value Date Recorded Sex Assigned at Female 08/11/2022 10:36 AM EDT Legal Sex Female 10:36 AM EDT Gender Identity Choose not to disclose 10:36 AM EDT Sexual Orientation Choose not to disclose 2021 10:36 AM EDT Last Filed Vital Signs Vital Sign Reading Time Taken Comments Blood Pressure 145/82 11/24/2024 3:44 PM EST Pulse 100 11/24/2024 3:44 PM EST Temperature 36.8 ??C (98.3 ??F) 11/24/2024 3:44 PM ES T Respiratory Rate 20 11/24/2024 3:44 PM EST Oxygen Saturation 99% 11/24/2024 3:44 PM EST Inhaled Oxygen Concentration - - Weight 75.3 kg (166 lb) 11/24/2024 3:44 PM EST Height 160 cm (5' 3 ) 11/24/2024 3:44 PM EST Body Mass Index 29.41 11/24/2024 3:44 PM EST Plan of Treatment Upcoming Encounters Date Type Department Care Team ([facility] st Contact Info) Description 02/27/2025 4:00 PM EDT Office Visit [facility] [address] [place] [address] Zurdo Chavarria MD [address] [place], [place] [phone] Health Maintenance Due Date Last Done Comments CT Colonography 1960 Colonoscopy 1960 Colorectal Cancer Screening 1960 FIT DNA/Cologuard 1960 FIT 1960 FOBT 1960 Sigmoidoscopy 1960 Pneumococcal Vaccine: 50+ Years (1 of 1 - PCV) 2008 Zoster Vaccines (1 of 2) 2008 COVID-19 Vaccine (4 - 2023-2 5 season) 2024 02/25/2022, 02/19/2021, 01/29/2021 Influenza Vaccine (#1) 2024 07/09/2023 Mammogram 02/10/2025 02/10/2023 Tobacco Screening 06/08/2025 06/08/2024 Alcohol/Substance Use Screening 11/24/2025 11/24/2024 Depression Screening 11/24/2025 11/24/2024, 11/24/2024 SDOH Screening 11/24/2025 11/24/2024 Lipid Panel 05/18/2029 05/18/2024, 12/31/2022 DTaP/Tdap/Td Vaccines (2 - T d or Tdap) 12/31/2032 12/31/2022 RSV Patients and Patients Aged 60 years or older (1 - 1-dose 75+ series) 2033 Hepatitis C Screening Completed 12/31/2022 HIB Vaccines Aged Out No longer eligi ble based on patient's age to complete this topic HPV Vaccines Aged Out No longer eligi ble based on patient's age to complete this topic Hepatitis A Vaccines Aged Out No long er eligible based on patient's age to complete this topic Hepatitis B Vaccines Aged Out No long er eligible based on patient's age to complete this topic IPV Vaccines Aged Out No longer eligi ble based on patient's age to complete this topic Meningococcal B Vaccine Aged Out No l onger eligible based on patient's age to complete this topic Meningococcal Vaccine Aged Out No brenda marialuisa eligible based on patient's age to complete this topic RSV under 20 months Aged Out No longe r eligible based on patient's age to complete this topic Rotavirus Vaccines Aged Out No longer eligible based on patient's age to complete this topic Procedures Procedure Name Priority Date/Time Associated Diagnosis Comments LIPID PANEL, STANDARD Routine 05/18/2024 9:14 AM EDT Chronic rhinitis Bloating BI MAMMOGRAM SCREENING TOMOSYNTHESIS BILATERAL Routine 02/10/2023 3:02 PM EDT HEPATITIS C AB W/REFL TO HCV RNA, QN, PCR Routine 12/31/2022 10:08 AM EDT Gastroesophageal reflux disease without esophagitis from Last 3 Months or Most Recently Relevant to Health Maintenance Results * (ABNORMAL) Lipid Panel, Standard (05/18/2024 9:14 AM EDT) Triglycerides 82 <150 mg/dL [facility] Comment:Desirable Triglyceri de: less than 150 mg/dLBorderline High Triglyceride 150-199 mg/dLHigh Triglyceride: 200-499 mg/dLVery High Triglyceride: greater than or equal to 5OO mg/dL Cholesterol 208(H) <200 mg/dL [facility] Comment:Desirable Cholestero l: less than 200 mg/dLBorderline High Cholesterol: 200-239 mg/dLHigh Cholesterol: greater than 239 mg/dL LDL Cholesterol Calculated 142(H) <100 mg/dL [facility] Comment:Desirable LDL: less than 100 mg/dLNear Optimal/Above Optimal LDL: 110- 129 mg/dLBorderline High LDL: 130-159 mg/dLHigh LDL: 160-189 mg/dLVery High LDL: greater than or equal to 190 mg/dL HDL Cholesterol 50 >40 mg/dL [facility] Comment:Desirable HDL: great er than 40 mg/dL Note: This HDL assay may give artificially low results in patients with liver disease. Blood Venous blood specimen / Unknown 05/18/2024 9:14 AM EDT 05/18/2024 2:12 PM EDT us Zurdo Gutierrez MD LAB BLOOD ORDERABL ES Final Result [facility] [address] [place] [address] [phone] * BI Mammogram Screening Tomosynthesis Bilateral (02/10/2023 3:02 PM EDT) Anatomical Region Laterality Modality Breast Bilateral Mammography 02/10/2023 3:02 PM EDT Narrative 02/12/2023 1:18 PM EDT ? [facility] ? [address] ?[place] [id number] ? Mammography Report ? Signed ? Patient: Romelia Justin D ?MR#: [id number] ?? [id number] ? : 1960 ?Acct:[id number] ? Age/Sex: 62 / F ?ADM Date: 05/02/23 ? Loc: HO.MAMMO ? Attending Dr: Zurdo Gutierrez MD ? Ordering Physician: Zurdo Chavarria MD ?Res ?? ults: 2Benign Findings ? Date of Service: 02/10/23 ?Follow Up: 1 Year From Orig ?? inal Mammogram ? Procedure(s): MM tomosynthesis screening BI ?? Accession Number(s): [id number] ? cc: Zurdo Chavarria MD ? EXAMINATION: ?? MM SCREENING DIGITAL BREAST TOMOSYNTHESIS, BILATERAL ? CLINICAL INFORMATION: ? Screening. Asymptomatic. Age 62. No prior breast imaging. ? No known family history breast cancer. ??The lifetime risk of breast ?? cancer based on the Tyrer-Cuzick Model is 4%. ? COMPARISON: ?? None (current study represents initial baseline exam). ? TECHNIQUE: ?? Digital breast tomosynthesis is performed in both the craniocaudal and ?? mediolateral oblique views along with computer-aided detection (CAD). ?? Synthesized 2D images are generated from the tomosynthesis. ? FINDINGS: ?? There are scattered areas of fibroglandular density (ACR BI-RADS breast ?? composition Category b). ? There are no significant masses, abnormal calcifications, or other ?? abnormalities. ?? The axilla are unremarkable. There are scattered ?? bilateral predominantly vascular calcifications. Skin contours are ?? smooth. ? MM/MM tomosynthesis screening BI ?? IMPRESSION: ?? No mammographic evidence of malignancy. ? ASSESSMENT: ? BI-RADS 2: Benign ? RECOMMENDATION: ?? Routine annual mammography screening. ? This patient's information was entered into a reminder system with a ?? target due date for their next mammogram. ? Dictated By: ?Mauro Herrera MD ? Signed By: ?<Electronically signed by Mauro Herrera MD in OV> ?05/04/23 1315 ? DD/ 1502 ? TD/TT: ? Personal Lines Insurance Advisor: ROWE ? Procedure Note Donotuseinterpreter, Image - 04/09/2023 [facility] [address] [place] [address] Mammography Report Signed Patient: Romelia Justin DMR#: [id number] : 8Acct:[id number] Age/Sex: 62 / FADM Date: 02/10/23 Loc: HO.MAMMO Attending Dr: Zurdo Gutierrez MD Ordering Physician: Zurdo Chavarria ults: 2Benign Findings Date of Service: 02/10/23Follow Up: 1 Year From Orig inal Mammogram Procedure(s): MM tomosynthesis screening BI Accession Number(s): [id number] cc: Zurdo Chavarria MD EXAMINATION: MM SCREENING DIGITAL BREAST TOMOSYNTHESIS, BILATERAL CLINICAL INFORMATION: Screening. Asymptomatic. Age 62. No prior breast imaging. No known family history breast cancer. The lifetime risk of breast cancer based on the Tyrer-Cuzick Model is 4%. COMPARISON: None (current study represents initial baseline exam). TECHNIQUE: Digital breast tomosynthesis is performed in both the craniocaudal and mediolateral oblique views along with computer-aided detection (CAD). Synthesized 2D images are generated from the tomosynthesis. FINDINGS: There are scattered areas of fibroglandular density (ACR BI-RADS breast composition Category b). There are no significant masses, abnormal calcifications, or other abnormalities. The axilla are unremarkable. There are scattered bilateral predominantly vascular calcifications. Skin contours are smooth. MM/MM tomosynthesis screening BI IMPRESSION: No mammographic evidence of malignancy. ASSESSMENT: BI-RADS 2: Benign RECOMMENDATION: Routine annual mammography screening. This patient's information was entered into a reminder system with a target due date for their next mammogram. Dictated By: Mauro Herrera MD Signed By: <Electronically signed by Mauro Herrera MD in OV> 02/12/23 1315 DD/ 1502 TD/TT: [employer] Insurance Advisor: ROWE [facility] External Provider IMG BI PROCEDURES Final Result * Hepatitis C Antibody with Reflex to HCV, RNA, Quantitative, Real-Time PCR (12/31/2022 10:08 AM EDT) Hepatitis C Antibody NON-REACT DORIS NON-REACT DORIS [employer] [place] [employer] Index 0.09 <1.00 [employer] [place] [employer] Comment: HCV antibody was non-reactive. There is no laboratory evidence of HCV infection. In most cases, no further action is required. However, if recent HCV exposure is suspected, a test for HCV RNA (test code 92185) is suggested. For additional information please refer to http://education.Helpa/faq/JLX51f8 (This link is being provided for informational/ educational purposes only.) Blood Venous blood specimen / Unknown 12/31/2022 10:08 AM EDT 12/31/2022 10:09 AM EDT Narrative [facility] - 01/03/2023 12:26 AM EDT FASTING:NO FASTING: NO us Zurdo Gutierrez MD LAB BLOOD ORDERABL ES Final Result [facility] [address], [place] [address] [employer] [place] [employer] [address] [place] [address] from Last 3 Months or Most Recently Relevant to Health Maintenance Insurance [facility] Care Teams Medical Records Administrator Relationship Specialty Start Date End Date Zurdo Chavarria MD [address] [place] [id number] PCP - General Internal Medicine 10/24/19
--- OUTSIDE RECORDS SUMMARY | 2025-02-22 15:54 | XMS_ITS | Encounter Summary ---
Author Organization [employer] Address [address] [facility] [address] [place] [address] Care Team Providers Care Automotive Refinisher Name Role Phone Zurdo Chavarria MD Primary Care Prov ider Reason for Visit * Reason Onset Date Comments Nurse Triage 06/08/2024 Encounter Details Date Type Department Care Team (Late st Contact Info) Description 06/08/2024 Telephone [facility] [address] [place] [address] Zurdo Chavarria MD [address] [place] [address] [phone] Nurse Triage Social History Tobacco Use Types [...] Telephone Encounter - Morenita Haas RN - 06/08/2024 3:46 PM EDT Triage call Pt daughter , Rubi Aguilar, is calling with Pt permission. Daughter reports Pt has been coughing and it is worse since yesterday. Pt has been coughing most of the night. Pt may have had a fever but, not now, nasal drainage, headache, difficulty breathing when coughing so hard. Pt has been taking kely daily as prescribed for allergy sx but, it isn't helping the cough. Home Covid testwas done today and is neg. Advised to come to [facility] today open till 8pm and provider can see Pt. Tannerugher agrees with this disposition. Home care is reviewed. Insurance is verified as active. Protocol Used: Cough (Adult) Protocol-Based Disposition: See in Office or Video Visit Today or Tomorrow Video visit not offered Positive Triage Questions: * Continuous (nonstop) coughing interferes with work or school and no improvement using cough treatment per Care Advice * Patient wants to be seen * All higher-acuity triage questions were negative Care Advice Discussed: * Cough Medicines * Coughing Spells * Prevent Dehydration * Humidifier * Fever Medicines * Reasons To Call Back - Difficulty breathing - Cough lasts more than 3 weeks - Fever lasts more than 3 days - You become worse * Telephone Encounter - Joey Sesay - 06/08/2024 3:19 PM EDT Symptom: Cough Outcome: Transfer to a nurse or provider NOW! Reason: Struggling for each breath (severe trouble breathing) documented in this encounter Plan of Treatment Upcoming Encounters Date Type Department Care Team ([facility] st Contact Info) Description 02/27/2025 4:00 PM EDT Office Visit [facility] [address] [place] [address] Zurdo Chavarria MD [address] [place] [address] documented as of this encounter Visit Diagnoses Not on filedocumented in this encounter Additional Health Concerns Assessment Noted Time PHQ-9 Depression Total Score: 2 02/03/20 24 1:59 PM EDT documented as of this encounter Care Teams Automotive Refinisher Relationship Specialty Start Date End Date Zurdo Chavarria MD [address] [place] [address] PCP - General Internal Medicine 10/24/19 documented as of this encounter
--- NOTE | 2025-02-22 15:56 | PFT_ITS ---
Spirometry [] Lung Volumes [] Diffusion Capacity [] Methacholine Challenge [] Flow Volume Loops [] MVV [] MIP/MEP(Max inspiratory pressure/Max expiratory pressure) [] 6 Minute Walk Test [] ABG [] Interpretation [] MTDD
[2025-02-22 16:43] VITALS: PULSE 75; O2SAT 97
== END 2025-02-22 15:52 | disposition home or self-care (01) ==
LOC: HO.RESP 15:51
PROVIDERS: PCP Internal Medicine; Visit Provider Nurse Practitioner Family
DX: R05.3 Chronic cough (principal)
CPT/HCPCS: 94010; 94640; 94727; 94729

== ENCOUNTER → 2025-02-22 15:56 | Outpatient (BNV) | payer OTHER, SELFPAY | PROVIDERS: PCP Internal Medicine; Visit Provider Internal Medicine Pulmonary Disease | DX: R94.2 Abnormal results of pulmonary function studies (principal) | CPT/HCPCS: 94060; 94727; 94729 ==